=== PATIENT | male | born 1965 | race Hispanic/Latino ===

== ENCOUNTER 2018-07-03 08:10 | Outpatient (CLI) | payer BC ==
[2018-07-03] MEDS ORDERED: Iopamidol 370 76% 100 ML VIAL ONE (08:25)
--- NOTE | 2018-07-03 09:46 | CT ---
ABDOMEN CT WITH CONTRAST PELVIC CT WITH CONTRAST: Date: 07/03/18 HISTORY: Abdominal pain, extending to the back x1 week. Progressive worsening. Right upper quadrant pain. COMPARISON: None. TECHNIQUE: An abdomen and pelvic CT are performed with IV contrast. Enteric contrast also administered. Coronal reformatted images are submitted for interpretation. FINDINGS: ABDOMEN CT: Lung bases demonstrate minimal atelectatic change. Heart size is normal. No pericardial effusion. The descending thoracic aorta and abdominal aorta have a normal caliber. No periaortic fat stranding. Intra and extrahepatic portal vein is patent. Gallbladder is unremarkable. Subtle peripherally enhancing centrally hypodense focus along the left hepatic lobe measuring 8.0 mm (axial image #19, series 2). Lesion is too small to further characterize. The spleen, pancreas, and adrenal glands have appropriate enhancement. No gastrohepatic, retrocrural, or periportal lymphadenopathy. No mesenteric mass, lymphadenopathy, free air, or free fluid. There is a nonspecific peripancreatic lymph node measuring 1.5 x 1.2 cm. Gastric mucosa, duodenum, and multiple normal caliber small bowel loops are present. There is no evid ence of bowel obstruction. Ileocecal junction is normal. Scattered fecal material in a nondistended, nondilated colon. Occasional diverticulum. No diverticulitis. Normal caliber appendix. Symmetric enhancement of the kidneys. Bilaterally, no obstructive uropathy. There is an exophytic hyp odensity emanating from the left renal cortex, measuring 1.6 x 1.3 cm with an attenuation coefficient of 25 Hounsfield units. Lesion is indeterminate. Coronal images do suggest possible enhancing septae . PELVIC CT: No mass, lymphadenopathy, free air, or free fluid. No lytic or blastic lesions in the osseous structures. IMPRESSION: 1. Indeterminate lesion in left hepatic lobe. 2. Indeterminate lesion in the left kidney. Better interrogation with abdomen MRI. 3. No evidence of bowel obstruction. No CT evidence of cholecystitis or cholelithiasis. 4. Normal caliber appendix. POS: [facility]
== END 2018-07-03 08:11 | disposition home or self-care (01) ==
LOC: CT 08:10
PROVIDERS: ATTEND Internal Medicine
DX: R10.11 Right upper quadrant pain (principal); M54.9 Dorsalgia, unspecified; K76.9 Liver disease, unspecified; N28.9 Disorder of kidney and ureter, unspecified
CPT/HCPCS: 74177

== ENCOUNTER 2019-05-28 17:24 | Inpatient (IN) | payer BC, OTHER ==
--- NOTE | 2019-05-28 18:15 | CT ---
CT chest noncontrast CLINICAL HISTORY: Emergency exam, fall, chest pain. FINDINGS: There is a left pneumothorax, located anteriorly, predominantly with a smaller posteromedial componen t. Dependent opacification of left lung indicates contusion as there is overlying posterior chest wall contusion, soft tissue emphysema, and associated posterior left eighth rib fracture. Mildly disp laced fracture of the left L1 transverse process is also present. There is mild pneumomediastinum. IMPRESSION: Acute left pneumothorax with associated left posterior eighth rib fracture and left L1 tr ansverse process fracture. Mild pneumomediastinum is also present. Telephone call of findings placed to Dr. Martinez, 1810 hours. Transcribed Date/Time: 05/28/2019 7:03 PM
[2019-05-28] MEDS ORDERED: Ondansetron PF 4 MG/2 ML Vial ONE (18:32)
[2019-05-28] MEDS ORDERED: Morphine 4 MG/ML VIAL ONE (18:32)
[2019-05-28] MEDS ORDERED: Ketorolac Tromethamine 30 MG/ML VIAL ONE (19:26)
--- NOTE | 2019-05-28 19:39 | RAD ---
Exam: Chest one view HISTORY:History of pneumothorax Comparison: Preceding chest CT, same date is referenced FINDINGS: Lungs: Patchy left perihilar parenchymal density Cardiac silhouette:Accentuated Pulmonary vessels: Normal Pleural Spaces: Clear Pneumothorax: Small left apical pneumothorax Osseous abnormalities: Patient's known left eighth rib fractures not well depicted IMPRESSION: Small left apical pneumothorax
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
[2019-05-28] MEDS ORDERED: HYDROcodone/Acetaminophen 5/325 mg Tablet PO PRN ×2 (21:59)
[2019-05-28] MEDS ORDERED: Communication Order-Pharmacy FS SCH (21:59)
[2019-05-28] MEDS ORDERED: Milk Of Magnesia 30 ML UDCUP PO PRN (21:59)
[2019-05-28] MEDS ORDERED: Bisacodyl 10 MG SUPP PR PRN (21:59)
[2019-05-28] MEDS ORDERED: Ondansetron PF 4 MG/2 ML Vial IV PRN (21:59)
[2019-05-28] MEDS ORDERED: traMADol HCl 50 MG TAB PO PRN (21:59)
[2019-05-28] MEDS ORDERED: Senokot S 8.6-50 MG TAB PO SCH (22:15)
[2019-05-28] MEDS ORDERED: Aspirin 81 mg Enteric Coated Tablet PO SCH (22:15)
[2019-05-28] MEDS: traMADol HCl 50 MG TAB PO SCH (22:40)
--- NOTE | 2019-05-28 23:48 | PDOC.GSPN ---
Surgery Progress Note: Subj - Subjective Narrative: Patient seen and examined and agree with the plan as discussed with trauma PA and documented in her note. Surgery Progress Note: Obj - Vital signs Vital signs: Vital Signs - Most Recent Temp Pulse Resp BP Pulse Ox 98.4 F 64 16 117/70 95 05/28/19 23:09 05/28/19 23:09 05/28/19 23:09 05/28/19 23:09 05/28/19 23:09
[2019-05-28] MEDS ORDERED: Acetaminophen 325 MG TAB PO SCH (23:59)
[2019-05-29] MEDS: Acetaminophen 500 MG TAB PO SCH ×3 (00:09→11:29)
[2019-05-29 00:38] VITALS: BMI 28.4
[2019-05-29] MEDS: traMADol HCl 50 MG TAB PO SCH ×2 (04:52→09:14)
[2019-05-29 06:19] LABS: Anion Gap 8 mmol/L (10-20); BUN (Urea Nitrogen) 23 mg/dL (8.4-25.7); Calc. Creatinine Clearance 200 mL/min (70-130); Calcium 8.9 mg/dL (7.8-10.44); Carbon Dioxide 25 mmol/L (22-29); Chloride 107 mmol/L (98-107); Estimated GFR-MDRD Greater than 90; Glucose 101 mg/dL (70-105); Phosphorus 4.3 mg/dL (2.3-4.7); Potassium 4.1 mmol/L (3.5-5.1); Sodium 136 mmol/L (136-145)
--- NOTE | 2019-05-29 08:00 | RAD ---
FRONTAL VIEW CHEST: Date: 05/28/19 COMPARISON: Earlier same date. INDICATION: Fall, pneumothorax, follow-up. FINDINGS: There has been interval decreased volume with trace left apical pneumothorax remaining. Chest is othe rwise similar. IMPRESSION: Minute residual left apical pneumothorax, improved from preceding exam. POS: [facility]
[2019-05-29] MEDS: Cyclobenzaprine 10 MG TAB PO SCH ×2 (08:05→15:22)
--- NOTE | 2019-05-29 08:45 | RAD ---
PORTABLE CHEST: Date: 05/29/19 HISTORY: Pneumothorax follow-up. COMPARISON: 05/28/19. FINDINGS: Evidence of a tiny left apical pneumothorax, unchanged. Lungs otherwise remain clear with no infiltra te or significant effusion. No acute interval change noted. IMPRESSION: Persistent tiny left apical pneumothorax. POS: [facility]
[2019-05-29] MEDS ORDERED: Aspirin 81 mg Enteric Coated Tablet PO SCH (09:00)
[2019-05-29] MEDS ORDERED: Polyethylene Glycol 3350 17 GM Packet PO SCH (09:00)
[2019-05-29] MEDS ORDERED: Senokot S 8.6-50 MG TAB PO SCH (09:00)
[2019-05-29 09:02] LABS: #Eosinphils 0.3 thou/uL (0.0-0.7); #Monocytes 0.7 thou/uL (0.11-0.59); #Neutrophils 4.4 thou/uL (1.40-6.50); %Basophils 0.4 % (0.0-1.0); %Eosinophils 3.3 % (0.0-10.0); %Lymphocytes 35.4 % (21.0-51.0); %Neutrophils 52.9 % (42.0-75.0); Hemoglobin 14.1 g/dL (14.0-18.0); Mean Corpuscular HGB CONC 32.8 g/dL (32.0-36.0); Mean Corpuscular Hemoglobin 30.6 pg (27.0-31.0); Mean Corpuscular Volume 93.1 fL (78.0-98.0); Platelet Count 241 thou/uL (130-400); RBC Distribution Width 13.7 % (11.5-14.5); Red Blood Cell (RBC) Count 4.61 mill/uL (4.70-6.10); White Blood Cell (WBC) Count 8.3 thou/uL (4.8-10.8)
--- NOTE | 2019-05-29 09:11 | RAD ---
EXAM: Portable chest: INDICATIONS: Follow-up pneumothorax COMPARISON: Portable film from earlier this morning FINDINGS: Tiny left apical pneumothorax appears smaller on this exam. Lungs remains clear. No other c hange. IMPRESSION: Tiny left apical pneumothorax
[2019-05-29 09:28] LABS: Phosphorus 3.8 mg/dL (2.3-4.7)
[2019-05-29 11:25] VITALS: BP 114/71; TEMP 98.4
--- NOTE | 2019-05-29 14:22 | RAD ---
EXAM: Chest Two Views 05/29/2019 2:18 PM HISTORY: Left-sided pneumothorax COMPARISON: Chest radiograph dated 05/29/2019 and 05/28/2019 FINDINGS: Heart: Normal in size and contour. Pulmonary vessels: Normal. Costophrenic angles: Clear. Lungs: There is worsening subsegmental atelectasis within the left lower lobe Pneumothorax: Left apical pneumothorax is slightly larger than seen on the comparison dated 05/29/2019 but stable in size to a comparison dated 05/28/2019 Osseous structures:Intact. Additional findings: None. IMPRESSION: Likely stable small left apical pneumothorax. Worsening subsegmental atelectasis within the left lowe r lobe.
--- NOTE | 2019-05-31 08:55 | HP ---
ADDENDUM: To Lawrence. CHIEF COMPLAINT: Chest and back pain. HISTORY OF PRESENT ILLNESS: Mr. Angulo is a 53-year-old man who fell off a piece of work equipment while at work. He was on a motor grader and was coming down the stairs and slipped and fell about 5 feet on to the edge of the grader striking his left back and flank, and he had immediate onset of pain in those areas, and came to the emergency room where he was found to have left-sided rib fracture and transverse process fracture, and small apical pneumothorax. He is not short of breath. PAST MEDICAL HISTORY: None. PAST SURGICAL HISTORY: Umbilical hernia repair. ALLERGIES: HE HAS NO ALLERGIES. MEDICATIONS: Takes no medications. FAMILY HISTORY: None. SOCIAL HISTORY: He does smoke a pack a day and drinks socially, but not to excess. He denies any drug use and he works in construction. REVIEW OF SYSTEMS: Ten-system review of systems is negative except per HPI and he denies any loss of consciousness or external wounds. PHYSICAL EXAMINATION: VITAL SIGNS: The patient has been afebrile since his admission. O2 sats are normal. Blood pressure was initially slightly elevated. Heart rate and respiratory rate are normal. GENERAL: Reveals a healthy-appearing man, in no acute distress. He is not flushed or toxic in appearance. He is not jaundiced or icteric. He is not pale or diaphoretic. HEENT: Unremarkable. NECK: Supple without lymphadenopathy or thyroid nodules. HEART: Regular in its rate and rhythm without murmurs, rubs, or gallops. LUNGS: Clear to auscultation bilaterally. ABDOMEN: Soft, nontender, and nondistended without palpable masses or hernias. He has a healed umbilical incision. EXTREMITIES: Warm and well perfused. CHEST: He has tenderness over the left chest, but no crepitus. No midline spinal tenderness or step-off. NEUROLOGIC: Intact without focal deficits. PSYCHIATRIC: Alert, oriented, and appropriate. LABORATORY DATA: Electrolytes are unremarkable. IMAGING DATA: Chest CT and initial chest x-ray are reviewed and I agree with the written reports. At the time that I saw him at the 6-hour followup, chest x-ray was pending and has since been performed and the radiology report is still pending, but I do not see any obvious expansion of his small apical left pneumothorax. ASSESSMENT: Left rib fracture and small pneumothorax, which are asymptomatic. He has been admitted for observation and symptomatic treatment, and does not appear to need any intervention for his pneumothorax. If it remains stable on serial imaging, he will likely be discharged home later today. I did discuss tobacco cessation with the patient and he is willing to try to give up smoking at least in the short term while his lung is healing. The patient was seen in conjunction with Vianey Monzon. Job ID: [id number]
== END 2019-05-29 16:12 | disposition home or self-care (01) | DRG 200 ==
LOC: ERS 17:24 → OBSVTOIN 20:20 → SURG B 20:20
PROVIDERS: ADMIT Surgery; ATTEND Surgery
DX: S27.0XXA Traumatic pneumothorax, initial encounter (principal); S22.32XA Fracture of one rib, left side, initial encounter for closed fracture; S32.019A Unspecified fracture of first lumbar vertebra, initial encounter for closed fracture; W10.8XXA Fall (on) (from) other stairs and steps, initial encounter; Y99.0 Civilian activity done for income or pay; Z72.0 Tobacco use; Y92.009 Unspecified place in unspecified non-institutional (private) residence as the place of occurrence of the external cause
CPT/HCPCS: 36415; 71045; 71046; 71250; 80048; 83735; 84100; 85025; 96374; 96375; G0390; J1885; J2270; J2405